=== PATIENT | female | born 1975 | race Caucasian/White ===

== ENCOUNTER 2018-09-21 20:53 | Emergency (ER) | payer BC, OTHER ==
[2018-09-22] MEDS ORDERED: NS 0.9% 1000 ML** 2,000 ML IV ONE (00:03)
[2018-09-22] MEDS ORDERED: Morphine 4 MG/ML VIAL (1 ml) 4 MG/ML VIAL IV ONE (00:03)
[2018-09-22] MEDS ORDERED: Ondansetron INJ* 2 MG/ML VIAL IV ONE (00:04)
--- NOTE | 2018-09-22 00:10 | ED ---
Complex/Multi-Sys Presentation - HPI Summary HPI Summary: Patient is a 43 y/o F presenting to ED with complaints of abdominal pain, ALEXANDRA, nausea. She reports SX onset first at around 192909/21/18. Pain has been constant since onset and has progressively worsened. Vomiting and diarrhea are denied. PSHx of . LNMP was around 2 weeks ago. No GI Hx reported, patient claims she takes no daily medications. On triage, pain is rated 5/10. Nothing is noted to aggravate/alleviate Sx. Home medications and allergies are reviewed. - History Of Current Complaint Chief Complaint: EDAbdPain Time Seen by Provider: 09/21/18 23:59 Hx Obtained From: Patient Onset/Duration: Lasting Hours - 192909/21/18, Still Present Timing: Constant, Hours - 192909/21/18 Severity Currently: Moderate - 5/10 Location: Pain At: - abdomen, head Character: Typical Headache Associated Signs And Symptoms: Positive: Headache, Nausea, Abdominal Pain. Negative: Vomiting, Diarrhea - Allergies/Home Medications Allergies/Adverse Reactions: Allergies Allergy/AdvReac Type Severity Reaction Status Date / Time No Known Allergies Allergy Verified 07/01/12 18:27 PMH/Surg Hx/FS Hx/Imm Hx Sensory History: Denies: Hx Legally Blind, Hx Deafness Opthamlomology History: Denies: Hx Legally Blind EENT History: Denies: Hx Deafness Infectious Disease History: No Infectious Disease History: Denies: Traveled Outside the [place] in Last 30 Days - Family History Known Family History: Negative: Cardiac Disease, Hypertension, Diabetes - Social History Alcohol Use: None Substance Use Type: Reports: None Smoking Status (MU): Never Smoked Tobacco Review of Systems Positive: Abdominal Pain, Nausea. Negative: Vomiting, Diarrhea Positive: Headache All Other Systems Reviewed And Are Negative: Yes Physical Exam - Summary Physical Exam Summary: Appearance: Well-appearing, Well-nourished, lying in bed comfortably Skin: Warm, dry, no obvious rash Eyes: sclera anicteric, no conjunctival pallor ENT: mucous membranes moist, pharynx appears normal Neck: Supple, nontender Respiratory: Clear to auscultation, no signs of respiratory distress Cardiovascular: Normal S1, S2. No murmurs. Normal distal pulses in tibial and radial bilaterally. Abdomen: Soft, upper abdominal tenderness, normal active bowel sounds present Musculoskeletal: Normal, Strength/ROM Intact Neurological: A&Ox3, awake and alert, mentation is normal, speech is fluent and appropriate Psychiatric: affect is normal, does not appear anxious or depressed Triage Information Reviewed: Yes Vital Signs On Initial Exam: Initial Vitals Temp Pulse Resp BP Pulse Ox 98.7 F 90 20 177/105 98 09/21/18 21:04 09/21/18 21:04 09/21/18 21:04 09/21/18 21:04 09/21/18 21:04 Vital Signs Reviewed: Yes Diagnostics - Vital Signs Vital Signs Temp Pulse Resp BP Pulse Ox 09/21/18 21:04 98.7 F 90 20 177/105 98 - Laboratory Result Diagrams: 09/22/18 00:42 09/22/18 00:42 Lab Statement: Any lab studies that have been ordered have been reviewed, and results considered in the medical decision making process. - CT ABD/ PEL CT CT Interpretation Completed By: Radiologist Summary of CT Findings: IMPRESSION: No acute findings. THIS REPORT WAS REVIEWED BY DR. TYLER Re-Evaluation - Re-Evaluation First Eval Re-Evaluation Time: 01:26 Change: Improved Comment: Patient reported improvement of Sx after medications, she will be discharged to home. She is agreeable with this. Complex Multi-Symp Course/Dx Course Of Treatment: Patient is a 43 y/o F presenting to ED with complaints of abdominal pain, ALEXANDRA, nausea. She reports SX onset first at around 1930 09/21/18. Pain has been constant since onset and has progressively worsened. Vomiting and diarrhea are denied. PSHx of . LNMP was around 2 weeks ago. No GI Hx reported, patient claims she takes no daily medications. On physical exam, upper abdominal tenderness is noted. Labs showed Hgb 11.7, sodium 134, BUN/ creatinine ratio 20.3, glucose 125, CRP 15.76, lipase 108, Beta HCG < 0.60.UA showed 1+ leukocyte esterase, 2+ WBC, trace RBC, present squamous eptih cells. CT ABD/PEL IMPRESSION: No acute findings. During ED course, patient received fluids, Zofran 8 mg IV, morphine 4 mg IV. Patient reported improvement of Sx after medications, she will be discharged to home. She is agreeable with this. - Diagnoses Provider Diagnoses: Abdominal pain Discharge - Sign-Out/Discharge Documenting (check all that apply): Patient Departure - discharge Patient Received Moderate/Deep Sedation with Procedure: No - Discharge Plan Condition: Good Disposition: HOME Patient Education Materials: Acute Abdominal Pain (ED) Referrals: [facility] [Outside] - 1 Week Additional Instructions: The cause of the pain you had tonight is not entirely clear, but your CT scan being normal did rule out a lot of possibilities, including the dangerous ones. So it is safe for you to go home, but I would recommend a followup check within the week. The acuity and location of the pain were suggestive of gallbladder pain, so an ultrasound test to make sure you do not have gallstones would be helpful. - Billing Disposition and Condition Condition: GOOD Disposition: Home - Attestation Statements Document Initiated by Maggie: Yes Documenting Scribe: JOSEP BISWAS Provider For Whom Maggie is Documenting (Include Credential): JAJA TYLER MD Scribe Attestation: IJOSEP, scribed for JAJA TYLER MD on 09/23/18 at [id number]. Scribe Documentation Reviewed: Yes Provider Attestation: The documentation as recorded by the JOSEP gibbs accurately reflects the service I personally performed and the decisions made by me, JAJA TYLER MD Status of Scribe Document: Viewed
[2018-09-22 00:59] LABS: ABS Basophils 0.1 10^3/ul (0-0.2); ABS Eosinophils 0.1 10^3/ul (0-0.6); ABS Lymphocytes 1.9 10^3/ul (1.0-4.8); ABS Monocytes 0.4 10^3/ul (0-0.8); Eosinophil % 1.2 %; Hematocrit 35 % (35-47); Hemoglobin 11.7 g/dL (12.0-16.0); Lymphocyte % 20.1 %; Mean Corpuscular HGB Conc 34 g/dL (31-36); Mean Corpuscular Hemoglobin 29 pg (27-31); Mean Corpuscular Volume 87 fL (80-97); Mean Platelet Volume 8.8 fL (7.4-10.4); Platelet Count 224 10^3/uL (150-450); Red Cell Distribution Width 13 % (10.5-15); White Blood Count 9.5 10^3/uL (3.5-10.8)
[2018-09-22 01:17] LABS: ALT 14 U/L (7-52); AST 14 U/L (13-39); Albumin 4.2 g/dL (3.2-5.2); Albumin/Globulin Ratio 1.4 (1-3); Alkaline Phosphatase 76 U/L (34-104); Anion Gap 5 mmol/L (2-11); BUN/Creatinine Ratio 20.3 (8-20); Blood Urea Nitrogen 13 mg/dL (6-24); C Reactive Protein 15.76 mg/L (<8.01); CO2 Carbon Dioxide 25 mmol/L (22-32); Calcium 9.3 mg/dL (8.6-10.3); Chloride 104 mmol/L (101-111); EGFR Non-African American 100.8 (>60); Globulin 3.1 g/dL (2-4); Glucose 125 mg/dL (70-100); Potassium 4.3 mmol/L (3.5-5.0); Sodium 134 mmol/L (135-145); Total Protein 7.3 g/dL (6.4-8.9)
[2018-09-22] MEDS ORDERED: Iohexol 300* (CONTRAST) 10 ML SDV IV ONE (01:20)
[2018-09-22 01:23] LABS: HCG Pregnancy < 0.60 mIU/mL
[2018-09-22 02:13] LABS: Urine Appearance Cloudy; Urine Bacteria Absent (Absent); Urine Bilirubin Negative (Negative); Urine Blood Negative (Negative); Urine Color Yellow; Urine Glucose Negative (Negative); Urine Ketones Negative (Negative); Urine Nitrite Negative (Negative); Urine Protein Negative (Negative); Urine Red Blood Cell Trace(0-2/hpf) (Absent); Urine Specific Gravity 1.025 (1.010-1.030); Urine Squamous Epithelial Cell Present (Absent); Urine Urobilinogen Negative (Negative); Urine White Blood Cell 2+(11-20/hpf) (Absent)
[2018-09-22 05:28] VITALS: BP 124/84
== END 2018-09-22 05:20 | disposition home or self-care (01) ==
LOC: ED 20:53
DX: R10.10 Upper abdominal pain, unspecified (principal); R51 Headache; R11.0 Nausea; Z32.02 Encounter for pregnancy test, result negative
CPT/HCPCS: 36415; 74177; 80053; 81003; 81015; 83690; 84702; 85025; 86140; 87086; 96361; 96374; 96375; 99283; J2270; J2405; Q9967

== ENCOUNTER 2019-02-20 15:44 | Emergency (ER) | payer BC ==
[2019-02-20] MEDS ORDERED: Benzonatate CAP* 100 MG PO ONE (16:11)
--- NOTE | 2019-02-20 16:16 | ED ---
Respiratory - HPI Summary HPI Summary: 43 year old female presents with cough for the past week. She said sometimes is productive. She denies any chest pain or shortness breath. She admits to sinus congestion. She admits to occasional sore throat. No postnasal drip. No fevers. She states has coughed so much that has vomited. No abdominal pain. Has history of bronchitis. She is nonsmoker. She denies any pain or swelling in her calf muscles. No history of asthma or COPD. Was seen at urgent care was told she has an upper respiratory infection. She was started on inhaler with no relief. - History of Current Complaint Chief Complaint: EDUpperRespComplaint Stated Complaint: COUGH / GAGGING PER PT Time Seen by Provider: 02/20/19 16:05 Pain Intensity: 3 - Allergy/Home Medications Allergies/Adverse Reactions: Allergies Allergy/AdvReac Type Severity Reaction Status Date / Time No Known Allergies Allergy Verified 02/20/19 16:07 PMH/Surg Hx/FS Hx/Imm Hx Endocrine/Hematology History: Denies: Hx Anticoagulant Therapy Respiratory History: Denies: Hx Asthma Sensory History: Denies: Hx Legally Blind, Hx Deafness Opthamlomology History: Denies: Hx Legally Blind Infectious Disease History: No Infectious Disease History: Denies: Traveled Outside the [place] in Last 30 Days - Family History Known Family History: Negative: Cardiac Disease, Hypertension, Diabetes - Social History Alcohol Use: None Substance Use Type: Reports: None Smoking Status (MU): Never Smoked Tobacco Review of Systems Negative: Fever Positive: Nasal Discharge. Negative: Sore Throat Negative: Chest Pain Positive: Cough. Negative: Shortness Of Breath All Other Systems Reviewed And Are Negative: Yes Physical Exam Triage Information Reviewed: Yes Vital Signs On Initial Exam: Initial Vitals Temp Pulse Resp BP Pulse Ox 97.7 F 71 18 146/100 100 02/20/19 15:47 02/20/19 15:47 02/20/19 15:47 02/20/19 15:47 02/20/19 15:47 Vital Signs Reviewed: Yes Appearance: Positive: Well-Appearing Skin: Positive: Warm, Dry Head/Face: Positive: Normal Head/Face Inspection Eyes: Positive: Normal, EOMI, TIMOTHY, Conjunctiva Clear ENT: Positive: Normal ENT inspection, Pharynx normal, TMs normal Respiratory/Lung Sounds: Positive: Clear to Auscultation, Breath Sounds Present Cardiovascular: Positive: Normal, RRR Abdomen Description: Positive: Nontender, Soft Bowel Sounds: Positive: Present Musculoskeletal: Positive: Normal Neurological: Positive: Normal Psychiatric: Positive: Normal Procedures - Sedation Patient Received Moderate/Deep Sedation with Procedure: No Diagnostics - Vital Signs Vital Signs Temp Pulse Resp BP Pulse Ox 02/20/19 15:47 97.7 F 71 18 146/100 100 - Laboratory Lab Statement: Any lab studies that have been ordered have been reviewed, and results considered in the medical decision making process. - Radiology chest Radiology Interpretation Completed By: Radiologist Summary of Radiographic Findings: IMPRESSION: No radiographic evidence of acute cardiopulmonary disease Disposition - Course Course Of Treatment: 43 year old female presents with cough for the past week. She said sometimes is productive. She denies any chest pain or shortness breath. She admits to sinus congestion. She admits to occasional sore throat. No postnasal drip. No fevers. She states has coughed so much that has vomited. No abdominal pain. Has history of bronchitis. She is nonsmoker. She denies any pain or swelling in her calf muscles. No history of asthma or COPD. Was seen at urgent care was told she has an upper respiratory infection. She was started on inhaler with no relief. On exam lungs clear auscultation. Chest x-ray normal. Will place patient on cough medication. Patient understands agrees with plan. - Differential Dx - Cardiopulmonary Differential Diagnoses - Cardiopulmonary: Bronchitis, Influenza, Lower Resp Infection - Diagnoses Provider Diagnoses: Bronchitis Discharge ED - Sign-Out/Discharge Documenting (check all that apply): Patient Departure - Discharge Plan Condition: Good Disposition: HOME Prescriptions: Benzonatate CAP* [Tessalon 100 MG CAP*] 100 mg PO TID PRN #21 cap PRN Reason: Cough Ondansetron ODT TAB* [Zofran 4 MG Odt TAB*] 4 mg PO Q6H PRN #12 tab.odt PRN Reason: Nausea Patient Education Materials: Acute Bronchitis (ED) Referrals: No Primary Care Phys,NOPCP [Primary Care Provider] - Additional Instructions: Use Tessalon three times a day for cough take zofran every 6 hours as needed for nausea Follow up with primary care physician in 5 days Return to ED if develop any new or worsening symptoms - Billing Disposition and Condition Condition: GOOD Disposition: Home
[2019-02-20] MEDS ORDERED: Acetaminophen TAB* 325 MG PO ONE (17:04)
[2019-02-20 17:44] VITALS: BP 134/91
== END 2019-02-20 17:45 | disposition home or self-care (01) ==
LOC: ED 15:44
DX: J40 Bronchitis, not specified as acute or chronic (principal)
CPT/HCPCS: 71046; 99282; A9270-GY